=== PATIENT | male | born 1950 | race Caucasian/White ===

== ENCOUNTER → 2024-05-12 08:20 | Outpatient (REF) | payer MEDICARE, BC, SELFPAY | LOC: RAD 08:20 | PROVIDERS: ATTENDING PHYSICIAN Surgery Vascular Surgery; FAMILY PHYSICIAN Physician Assistant Medical | DX: I71.40 Abdominal aortic aneurysm, without rupture, unspecified (principal) | CPT/HCPCS: 76770 ==

== ENCOUNTER → 2024-11-28 13:40 | Outpatient (REF) | payer MEDICARE, BC, SELFPAY | LOC: RAD 13:40 | PROVIDERS: ATTENDING PHYSICIAN Registered Nurse; FAMILY PHYSICIAN Physician Assistant Medical | DX: I71.40 Abdominal aortic aneurysm, without rupture, unspecified (principal) | CPT/HCPCS: 76770 ==

== ENCOUNTER → 2025-05-01 07:57 | Outpatient (REF) | payer MEDICARE, BC, SELFPAY | LOC: SDSPAT 07:57 | PROVIDERS: ATTENDING PHYSICIAN Surgery; FAMILY PHYSICIAN Physician Assistant Medical | DX: K42.9 Umbilical hernia without obstruction or gangrene (principal); K43.9 Ventral hernia without obstruction or gangrene; Z01.818 Encounter for other preprocedural examination | CPT/HCPCS: 36415; 93005 ==

== ENCOUNTER 2025-05-15 06:35 | Day surgery (SDC) | payer MEDICARE, BC, SELFPAY ==
[2025-05-01 14:06] VITALS: BMI 29.7
[2025-05-15] VITALS (10 sets, daily range): BP systolic 97–120; BP diastolic 60–93; BMI 29.7
[2025-05-15] MEDS: TYLENOL 1000 MG PO (08:12)
[2025-05-15] MEDS: NORMOSOL-R/PLASMALYTE-A 1000 IV (08:26)
--- NOTE | 2025-05-15 08:35 | HP.FOC2 ---
Focused History & Physical
Chief Complaint
HPI:
Chief Complaint: Umbilical/ventral hernia
HPI / Indication for Planned Procedure: Patient is a 74-year-old male previously seen in surgical evaluation secondary to history of a umbilical as well as supraumbilical ventral hernia. He presents today for scheduled operative correction.
2.5 cm fat-containing umbilical hernia and an additional ventral hernia superior to the umbilical defect also fat-containing encompassing approximately 4 cm in total vertical length
Relevant Past Medical History: Other (Hypercholesterolemia, AAA, BPH, history of prostate cancer s/p radiation)
Relevant Social History: Negative
Relevant Family History: Negative
Relevant Past Surgical History: Positive for (Cystoscopies, Mohs surgery for skin cancer on the nose)
Review of Systems
Review of Pertinent Systems: All Systems Negative
Medication
See Medication form for detailed medications: Yes
Medication List (including Herbals & OTC):
aspirin 81 mg tablet 81 mg PO HS 05/06/25
multivitamin 1 tab PO DAILY 05/06/25
psyllium 1 packet PO BID 05/06/25
rosuvastatin 40 mg tablet 40 mg PO HS 05/06/25
tadalafil 5 mg tablet (Cialis) 5 mg PO HS 05/06/25
tamsulosin 0.4 mg capsule 0.4 mg PO BID 05/06/25
Medications Reviewed: Yes
Allergies and Reactions
Patient has Allergies: Yes
Noted Allergies and Reactions:
Allergy/AdvReac Type Severity Reaction Status Date / Time
No Known Allergies Allergy Verified 05/15/25 08:10
Pertinent Physical Exam
All Other Systems: Negative
Head/Neck: Normal
Lungs: Normal
Heart: Normal
Abdomen: Other (UH 2cm; VH 2cm)
Extremities: Normal
Neurological: Normal
Diagnosis / Assessment
74-year-old male presenting for scheduled operative correction umbilical/ventral hernia
Plan / Procedure
Robotic assisted laparoscopic repair umbilical/ventral hernia with mesh
Anesthesia/Sedation to be done by Anesthesia Provider: Yes
--- NOTE | 2025-05-15 08:41 | W.SUR.PREOP ---
Pre-Operative Surgical Note
-
I have examined this patient prior to the performance of the scheduled procedure.
The patient's condition is unchanged from the time of the current History and
Physical and the patient is able to undergo the scheduled procedure.
[2025-05-15] MEDS: DILAUDID 0.5 MG IV ×2 (10:43→11:01)
--- NOTE | 2025-05-15 10:49 | W.IMMPOSTOP ---
Addendum entered and electronically signed by Barber Dhillon MD 05/15/25 11:20:
#[id number]
Original Note:
Surgical Immed Post Op Note
-
Primary Surgeon: Barber Dhillon MD
Assisting Surgeon: IVANA Patterson
Pre-op Diagnosis: Umbilical hernia/ventral hernia
Post-op Diagnosis: Umbilical hernia/ventral hernia; 4 cm total length
Procedure Performed: Robotic assisted laparoscopic ARELIS umbilical/ventral hernia repair with mesh; soft mesh 15 cm x 10 cm
Anesthesia Type: GETA +0.25% Marcaine
Specimen / Cultures: None
Estimated Blood Loss: 4 mL
Complications: None immediate
Operative Findings: Umbilical hernia and supraumbilical ventral hernia. Hernias encompassing 4 cm in total length. 2 cm in width. Hernias closed along the vertical oriented axis with 0 PDS STRATAFIX. Underlay preperitoneal mesh repair, Bard soft
mesh 15 cm x 10 cm.
== END 2025-05-15 13:00 | disposition home or self-care (01) ==
LOC: SDS 06:35
PROVIDERS: ATTENDING PHYSICIAN Surgery; FAMILY PHYSICIAN Physician Assistant Medical
DX: K42.9 Umbilical hernia without obstruction or gangrene (principal); K43.9 Ventral hernia without obstruction or gangrene
CPT/HCPCS: 49593; C1781